=== PATIENT | female | born 1970 | race Caucasian/White ===

== ENCOUNTER → 2020-03-23 13:06 | Outpatient (BNVA) | payer MEDICAID, SELFPAY | PROVIDERS: PCP Internal Medicine; Referring Provider Internal Medicine; Visit Provider Nurse Practitioner Family | DX: Z76.89 Persons encountering health services in other specified circumstances (principal) ==

== ENCOUNTER 2020-03-24 07:57 | Outpatient (REF) | payer MEDICAID, SELFPAY ==
[2020-03-24 13:46] LABS: CT PCR NOT DETECTED (Not Detect.); NG PCR NOT DETECTED (Not Detect.)
[2020-03-25 09:34] LABS: BV Int Neg Control Negative (Negative); BV Int Pos Control Positive (Positive)
[2020-03-28 20:12] LABS: HPV mRNA E6/E7 rflx Not Detected (Not Detected)
== END 2020-03-24 07:58 | disposition home or self-care (01) ==
LOC: HO.LAB 07:57
PROVIDERS: Visit Provider Obstetrics & Gynecology
DX: R10.31 Right lower quadrant pain (principal); Z11.3 Encounter for screening for infections with a predominantly sexual mode of transmission; Z12.4 Encounter for screening for malignant neoplasm of cervix; Z87.42 Personal history of other diseases of the female genital tract
CPT/HCPCS: 87480; 87491; 87510; 87591; 87624; 87625; 87660; 88142; 99202

== ENCOUNTER → 2020-05-04 08:47 | Outpatient (BNVA) | payer MEDICAID, SELFPAY | PROVIDERS: PCP Family Medicine Geriatric Medicine; Visit Provider Surgery | DX: N63.10 Unspecified lump in the right breast, unspecified quadrant (principal) | CPT/HCPCS: 99202 ==

== ENCOUNTER 2020-05-05 13:11 | Outpatient (REF) | payer MEDICAID, SELFPAY ==
--- NOTE | 2020-05-05 13:13 | MR_ITS ---
EXAMINATION: MR BRAIN WITHOUT AND WITH CONTRAST CLINICAL INFORMATION: Epilepsy. COMPARISON: Brain MRI December 07, 2019. TECHNIQUE: Multiplanar, multisequence imaging of the brain was performed before and after the intravenous administration of 8 mL of Gadavist. FINDINGS: There is no acute infarction, mass, hemorrhage, or extra-axial collection. No abnormal or unexpected intracranial enhancement is seen. The ventricles, sulci, and basilar cisterns are normal in size and configuration. Mild nonspecific foci of T2 hyperintensity are seen in the bilateral cerebral white matter without change compared with December 07, 2019. The hippocampi demonstrate normal and symmetric signal and morphology. No focal cortical dysplasia is seen. The flow voids of the major intracranial arteries appear intact. There is redemonstration of a T2 hyperintense lesion in the right aspect of the sella measuring up to 9 mm compatible with a pituitary microadenoma which is similar in size and morphology compared with December 07, 2019. MR/MR head/brain wo/w con IMPRESSION: No mass lesion, acute infarction, or abnormal intracranial enhancement. No discrete epileptogenic nidus identified. Stable appearance of the pituitary microadenoma seen in the right aspect of the sella.
== END 2020-05-05 13:12 | disposition home or self-care (01) ==
LOC: HO.MRI 13:11
PROVIDERS: PCP Internal Medicine; Visit Provider Psychiatry & Neurology Neurology
DX: G40.909 Epilepsy, unspecified, not intractable, without status epilepticus (principal)
CPT/HCPCS: 70553; A9585

== ENCOUNTER 2020-05-10 08:54 | Day surgery (SDC) | payer MEDICAID, SELFPAY ==
[2020-05-02 14:18] VITALS: BMI 32.1
--- NOTE | 2020-05-09 09:10 | P.CONAN_ITS ---
Documented by User: Marina Vines 05/09/20 09:10 HPI - Anesthesia Eval Consult details Narrative: 50yo F for Colonoscopy PMFSH Past Medical History Medical History Anxiety Hyperlipidemia Seizure disorder Family History Family History Father Family history of high blood pressure Mother Family history of high blood pressure Maternal Grandmother Breast cancer in female Alzheimer disease Surgical History Surgical History History of endometrial ablation Hx of section Hx of tonsillectomy Hx of tubal ligation Social History Social History Are you a primary student career development specialist to a significant other at home: No Do you presently have visiting nurse or other home services: No Alcohol intake: former Year quit: 2019 Smoking Status: Light tobacco smoker Cigarettes Per Day: 2 Smoked in Last 30 Days: No Smoking Quit Date: 12/2019 Use of substances other than those prescribed or required for medical reasons: No Advance Directives: No Advance Directives Information Provided: Yes Advance Directives on File: No Recently lost weight without trying: No Meds Allergies Allergy/AdvReac Type Severity Reaction Status Date / Time moxifloxacin [From Avelox] Allergy rash,hives Verified 05/10/20 09:46 Home Medications Medication Instructions Recorded Confirmed Type atorvastatin 20 mg tablet 20 mg PO QPM 03/23/20 05/04/20 History cholecalciferol (vitamin D3) 50 50 mcg PO DAILY 03/23/20 05/04/20 History mcg (2,000 unit) capsule hydroxyzine HCl 25 mg tablet 25 mg PO TID PRN 03/23/20 05/04/20 History ibuprofen 600 mg tablet 600 mg PO Q8H PRN 03/23/20 05/02/20 History levetiracetam 500 mg tablet 1,500 mg PO BID tab 03/23/20 05/04/20 History oxcarbazepine 300 mg tablet 300 mg PO BID 03/23/20 05/02/20 History cetirizine 10 mg tablet 10 mg PO DAILY 03/24/20 05/04/20 History mometasone 50 mcg/actuation nasal 2 spray INTRANASAL DAILY 03/24/20 05/04/20 History spray Exam Exam Date and Time: May 09, 2020 0910 Height,Weight and Vital Signs: Height 5 ft 1 in Weight 77.111 kg Assessment and Plan Assessment Anesthesia Assessment: Chart Reviewed Documented by User: Marcia Pollard 05/10/20 10:27 [facility] Past Medical History Medical History Anxiety Hyperlipidemia Seizure disorder Family History Family History Father Family history of high blood pressure Mother Family history of high blood pressure Maternal Grandmother Breast cancer in female Alzheimer disease Surgical History Surgical History History of endometrial ablation Hx of section Hx of tonsillectomy Hx of tubal ligation Social History Social History Are you a primary student career development specialist to a significant other at home: No Do you presently have visiting nurse or other home services: No Alcohol intake: former Year quit: 2019 Smoking Status: Light tobacco smoker Cigarettes Per Day: 2 Smoked in Last 30 Days: No Smoking Quit Date: 12/2019 Use of substances other than those prescribed or required for medical reasons: No Advance Directives: No Advance Directives Information Provided: Yes Advance Directives on File: No Recently lost weight without trying: No Meds Allergies Allergy/AdvReac Type Severity Reaction Status Date / Time moxifloxacin [From Avelox] Allergy rash,hives Verified 05/10/20 09:46 Home Medications Medication Instructions Recorded Confirmed Type atorvastatin 20 mg tablet 20 mg PO QPM 03/23/20 05/04/20 History cholecalciferol (vitamin D3) 50 50 mcg PO DAILY 03/23/20 05/04/20 History mcg (2,000 unit) capsule hydroxyzine HCl 25 mg tablet 25 mg PO TID PRN 03/23/20 05/04/20 History ibuprofen 600 mg tablet 600 mg PO Q8H PRN 03/23/20 05/02/20 History levetiracetam 500 mg tablet 1,500 mg PO BID tab 03/23/20 05/04/20 History oxcarbazepine 300 mg tablet 300 mg PO BID 03/23/20 05/02/20 History cetirizine 10 mg tablet 10 mg PO DAILY 03/24/20 05/04/20 History mometasone 50 mcg/actuation nasal 2 spray INTRANASAL DAILY 03/24/20 05/04/20 History spray Exam Airway Mallampati Class: II TM Dist: >3cm Neck ROM: Full Assessment and Plan Assessment Anesthesia Assessment: Anesthesia Plan Discussed and Chart Reviewed Final Anesthetic Review NPO: Yes ASA Class: II Final Preanesthetic Review: No Changes in Pt Med Stat, Meds/Allgs Chart Reviewed, Consent Obtained/Reviewed and Anes Risks/Benef Reviewed Patient Risk: Low Procedure Risk: Low Assessment/Block/Sedation in SS: Assess/Block/Sedation-SS Anesthetic Plan Anesthetic Plan: MAC: Disposition: Standard PACU
[2020-05-10 09:47] VITALS: BP 121/73; PULSE 87; RESP 16; TEMP 36.7; O2SAT 96
[2020-05-10] MEDS: Lactated Ringers 1,000 ML 100 ML IVCONT (09:55)
--- NOTE | 2020-05-10 10:01 | MHC.SHP ---
Pre-Procedural Eval Section A The patient is an INPATIENT: No Section B Chief Complaint: Screening Details of Present Illness: Colon cancer screening--right sided pain x 2 months Relevant Family History (Specify if Yes): No Relevant Social History: None Present Medications: see Short Stay Collaborative assessment Medical History: Significant History (Anxiety, Seizure disorder) History of Previous Operations: Relevant previous surgery/procedure and date(s) (C section) Allergies: Allergies Allergy/AdvReac Type Severity Reaction Status Date / Time moxifloxacin [From Avelox] Allergy rash,hives Verified 05/10/20 09:46 Review of Systems Sugical H&P ROS: Negative: Constitution, Cardiovascular and Respiratory and Yes, Specify: Neurological (hx seizure), Psychiatric (anxiety), Gastrointestinal and Musculoskeletal Exam Surgical H&P Exam: Normal: HEENT, Normal: Heart, Normal: Lungs, Normal: Extremities and Normal: Neurological and Significant Findings: Abdomen (soft, no masses, no palpable tenderness) Plan Diagnosis/Plan: Unchanged I have reviewed the history and physical and performed a pertinent physical examination on my patient. No changes have occurred unless specified.--yes.
--- NOTE | 2020-05-10 10:16 | PM.PROC ---
Brief Operative Note Date of procedure: 05/10/20 Pre-op diagnosis: Colon cancer screening right sided pains. Procedure: THIS IS DUPLICATE SEE COMPLETED NOTE ALREADY SIGNED.
[2020-05-10 10:48] VITALS: BP 92/61; PULSE 86; RESP 16; TEMP 36.7; O2SAT 97
--- NOTE | 2020-05-10 10:48 | PM.PROC ---
Brief Operative Note Date of procedure: 05/10/20 Pre-op diagnosis: colon cancer screening, right sided abd(??) pain Post-op diagnosis: other (Incomplete to proximal transverse colon--poor prep) Procedure: Colonoscopy to prox transverse colon. Anesthesia: KALE (Latrice) Surgeon: Kathy Herzog Estimated blood loss (mL): 0 Pathology: none sent Condition: stable Disposition: PACU
[2020-05-10 11:03] VITALS: BP 113/78; PULSE 88; RESP 16; TEMP 36.7; O2SAT 97
--- NOTE | 2020-05-10 11:48 | HO.POSTANES ---
Post Anesthesia Evaluation Post Anesthesia Evaluation Vital Signs: Vital Signs Temp Pulse Resp BP Pulse Ox 05/10/20 11:03 98.0 F 88 16 113/78 97 05/10/20 10:48 98.0 F 86 16 92/61 97 05/10/20 09:47 98.0 F 87 16 121/73 96 Anesthesia: Monitored Mental Status: Awake Pain Control: Satisfactory Nausea/Vomiting: None Hydration: Adequate Anesthesia-Related Issues: No Anes. Related Issues
--- NOTE | 2020-05-10 12:57 | OP_ITS ---
SURGEON: Kathy Herzog MD PREOPERATIVE DIAGNOSIS: Colon cancer screening (right lower quadrant pain, persistent, negative evaluation, negative CT from 03/09/2020). POSTOPERATIVE DIAGNOSIS: Incomplete exam to proximal transverse colon. PROCEDURE PERFORMED: Colonoscopy, incomplete to the proximal transverse colon. ESTIMATED BLOOD LOSS: No blood loss. COMPLICATIONS: No complications. ANESTHESIA: Monitored. ANESTHESIOLOGIST: Dr. Pollard ASSISTANTS: No clothing sales assistant. SPECIMENS: No specimens. PRIMARY CARE PHYSICIAN: Dr. Costello at [facility]. DEPUTY DIRECTOR OF NURSING: Dr. Herzog. CONDITION: Postop, stable. FINDINGS: Digital rectal exam revealed decreased sphincter tone. Video colonoscope was introduced without difficulty. It was navigated easily through rectosigmoid, sigmoid, on up through descending colon. There was generalized decreased visibility due to overall poor prep. Areas were flushed and suctioned. Due to the lack of visibility, the procedure was terminated just distal to the hepatic flexure. On withdrawing the scope, no lesions were seen. Anorectal verge was clear. PLAN: The patient will be re-evaluated for consideration of repeat exam with a 2-day prep within 12 to 24 months. FIT testing to be done in 3 months. GRAFT OR IMPLANTS: No grafts or implants. Kathy Herzog MD MEN/MODL / [id number] MTDD
--- NOTE | 2020-05-14 17:47 | OP_ITS ---
SURGEON: Kathy Herzog MD PROCEDURE PERFORMED: Incomplete colonoscopy to the proximal transverse colon. ESTIMATED BLOOD LOSS: No blood loss. COMPLICATIONS: No complications. ANESTHESIA: Monitored. ASSISTANTS: No certified registered dental assistant. SPECIMENS: No specimens removed. PREOPERATIVE DIAGNOSES: The patient presented for colon cancer screening. She also had been experiencing some right lower quadrant pain. CT done on 03/09/2020 was negative. POSTOPERATIVE DIAGNOSES: Incomplete exam to the proximal transverse colon. HEEL SLICKER: Dr. Herzog. CONDITION: Postop, stable. FINDINGS: Digital rectal exam revealed decreased sphincter tone. Video colonoscope was introduced without difficulty from the get-go. Prep was poor. There was increased fiber residual with intermittent clogging of the suction port. Overall visibility was poor. With steady slow progress, we were able to get past the mid transverse colon; however, we then encountered significant residual feculent material that the only recourse was to withdraw the scope. Slow withdrawal of the scope with some degree of flushing and suctioning. No lesions were seen. Anorectal verge was clear. PLAN AND CURRENT RECOMMENDATIONS: Repeat screening in this patient would be to consider FIT testing and then if FIT testing is negative in 1 year, repeat colon cancer screening attempts with a two-day prep. GRAFT OR IMPLANTS: No grafts or implants. Kathy Herzog MD MEN/MODL / [id number] MTDD
== END 2020-05-10 11:42 | disposition home or self-care (01) ==
PROVIDERS: Visit Provider Internal Medicine Gastroenterology
PROC: 0DJD8ZZ Inspection of Lower Intestinal Tract, Via Natural or Artificial Opening Endoscopic (ICD-10-PCS; CPT 45378; principal; 2020-05-10 10:20)
DX: Z12.11 Encounter for screening for malignant neoplasm of colon (principal); G40.909 Epilepsy, unspecified, not intractable, without status epilepticus; Z79.899 Other long term (current) drug therapy; F17.210 Nicotine dependence, cigarettes, uncomplicated; Z88.8 Allergy status to other drugs, medicaments and biological substances
CPT/HCPCS: 45378; J2405; J3010

== ENCOUNTER 2020-05-16 15:13 | Outpatient (REF) | payer MEDICAID, SELFPAY ==
--- NOTE | 2020-05-16 | US_ITS ---
EXAMINATION: US ABDOMEN COMPLETE CLINICAL INFORMATION: Right upper quadrant pain, patient states history of renal calculi. COMPARISON: KUB 05/16/2020 TECHNIQUE: Real-time imaging of the abdominal viscera. Technically difficult study secondary to bowel gas, body habitus. FINDINGS: PANCREAS: Partially visualized body of the pancreas is normal. The rest of the pancreas is obscured by overlying gas. ABDOMINAL AORTA: The proximal, mid, and distal segments are normal in caliber. INFERIOR VENA CAVA: Visualized portions are normal. LIVER: The liver is diffusely coarse and echogenic. The size and the contour are normal. There are areas of focal fatty sparing adjacent to the gallbladder. There is no intrahepatic biliary duct dilatation seen. No focal lesions are seen. GALLBLADDER: There are small echogenic non-shadowing non-mobile lesions/common tail artifacts within the gallbladder wall likely adenomyomatosis. No echogenic stones or wall thickening seen. COMMON BILE DUCT: Normal in caliber measuring 0.4 cm in diameter. RIGHT KIDNEY: Normal. No hydronephrosis. No renal calculi or focal parenchymal lesions. The kidney measures 11.0 cm in maximum dimension. LEFT KIDNEY: There are small echogenic foci in the midpole. No hydronephrosis. No renal calculi or focal parenchymal lesions. The kidney measures 11.4 cm in maximum dimension. SPLEEN: Normal. The spleen measures 8.5 cm in maximum dimension. FREE FLUID: None. US/US abdomen complete IMPRESSION: Likely gallbladder adenomyomatosis. No echogenic stones or hydronephrosis seen. Diffuse coarse and heterogeneous echogenic liver with areas of focal fatty sparing adjacent the gallbladder. Nonspecific echogenic foci in midpole.
--- NOTE | 2020-05-16 15:27 | XR_ITS ---
EXAMINATION: XR ABDOMEN KUB CLINICAL INDICATION: Right upper quadrant pain COMPARISON: None TECHNIQUE: AP view of the abdomen. FINDINGS: The bowel gas pattern is normal. No dilated loops of bowel or evidence of free air is seen. No calcifications are seen. Bony structures are unremarkable. XR/XR KUB IMPRESSION: Unremarkable examination.
[2020-05-16 18:00] LABS: Hematocrit 42.4 % (37-47); Hemoglobin 13.8 g/dl (12.0-16.0); Mean Corpuscular HGB Conc 32.5 g/dl (31.0-35.0); Mean Corpuscular Hemoglobin 29.7 pg (27.0-33.0); Mean Corpuscular Volume 91.4 fL (80-98); Mean Platelet Volume 8.9 fL (9.4-12.3); Platelet Count 396 X10*3/uL (160-400); Red Blood Count 4.64 X10*6/uL (4.20-5.50); Red Cell Distribution Width 11.5 % (11.0-16.0); White Blood Count 10.4 X10*3/uL (4.8-10.8)
[2020-05-16 18:19] LABS: Alanine Aminotransferase 26 U/L (0-31); Albumin Level 4.5 g/dL (3.5-5.0); Alkaline Phosphatase 67 U/L (39-117); Alkaline Phosphatase 69 U/L (39-117); Amylase 58 U/L (28-100); Anion Gap 13 (12-20); Aspartate Amino Transferase 19 U/L (5-31); Bilirubin Direct < 0.2 mg/dL (0.0-0.5); Bilirubin Total 0.3 mg/dL (0.0-1.0); Blood Urea Nitrogen 9 mg/dL (9-16); Calcium 8.9 mg/dL (8.4-10.2); Carbon Dioxide 27 mmol/L (22-29); Chloride 103 mmol/L (96-108); Estimated Glomerular Filt Rate > 60; Glucose Random 91 mg/dL (60-115); Lipase 23 U/L (8-78); Potassium 4.3 mmol/l (3.3-5.1); Sodium 139 mmol/L (135-145); Total Protein 7.2 g/dL (6.5-8.0)
[2020-05-16 18:20] LABS: Glucose Urine UA NEG (NEG); Leukocyte Esterase Urine NEG (NEG); Nitrite Urine NEG (NEG); Urine Blood TRACE (NEG); Urine Ketones 15 MG/DL (NEG); Urine Protein NEG (NEG-TRACE)
[2020-05-16 18:22] LABS: Appearance Urine CLEAR; Color Urine YELLOW
[2020-05-16 18:33] LABS: Bacteria Urine 2+ /LPF; Squamous Epithelial Cell Urine 3+ /LPF
== END 2020-05-16 15:14 | disposition home or self-care (01) ==
LOC: HO.US 15:13
PROVIDERS: Nurse Practitioner Family; Absent Provider Family Medicine; PCP Internal Medicine; Referring Provider Emergency Medicine; Visit Provider Internal Medicine
DX: R10.11 Right upper quadrant pain (principal); R10.9 Unspecified abdominal pain; Z12.11 Encounter for screening for malignant neoplasm of colon
CPT/HCPCS: 36415; 74018; 76700; 80053; 80076; 81001; 82150; 82248; 83690; 85027

== ENCOUNTER 2020-05-18 13:52 | Emergency (ER) | payer MEDICAID, SELFPAY ==
[2020-05-18 14:12] VITALS: BP 107/73; PULSE 100; RESP 16; TEMP 36.9; O2SAT 97; BMI 70.8
[2020-05-18 17:36] VITALS: BP 125/77; PULSE 95; RESP 16; TEMP 36.7; O2SAT 99
[2020-05-18 17:50] LABS: MANUAL DIFF FLAG NO
[2020-05-18 17:52] LABS: Basophils Percent Auto 0.2 % (0-2); Eosinophils Absolute Auto 0.1 X10*3/uL (0.0-0.4); Eosinophils Percent Auto 1.1 % (0-4); Hematocrit 41.3 % (37-47); Hemoglobin 13.7 g/dl (12.0-16.0); Imm Gran Abs Auto 0.03 X10*3/uL (0.00-0.03); Imm Gran Pct Auto 0.4 % (0.0-0.4); Lymphocytes Absolute Auto 2.6 X10*3/uL (1.2-4.9); Lymphocytes Percent Auto 31.2 % (20-40); Mean Corpuscular HGB Conc 33.2 g/dl (31.0-35.0); Mean Corpuscular Hemoglobin 30.3 pg (27.0-33.0); Mean Corpuscular Volume 91.4 fL (80-98); Mean Platelet Volume 8.9 fL (9.4-12.3); Monocytes Absolute Auto 0.8 X10*3/uL (0.1-1.2); Monocytes Percent Auto 9.3 % (2-11); Neutrophils Absolute Auto 4.9 X10*3/uL (2.0-8.3); Neutrophils Percent Auto 57.8 % (45-73); Platelet Count 364 X10*3/uL (160-400); Red Blood Count 4.52 X10*6/uL (4.20-5.50); Red Cell Distribution Width 11.5 % (11.0-16.0); White Blood Count 8.4 X10*3/uL (4.8-10.8)
--- NOTE | 2020-05-18 17:52 | ED_ITS ---
HPI - Abdominal Pain General Chief Complaint: Abdominal Pain Stated Complaint: flank pain Time Seen by Provider: 05/18/20 17:52 Source: patient Mode of arrival: ambulatory Limitations: language barrier History of Present Illness HPI narrative: Patient with chronic right upper quadrant pain for more than 2 months seen entry driver operator had colonoscopy done last week which was negative head ultrasound done yesterday which also negative for gallstones comes here as she does not have the report of ultrasound and still having the pain. No vomiting no diarrhea had some nausea pain gets worse after eating heavy meals no fever no chills no urinary complaints no flank pain patient is supposed to see entry driver operator tomorrow MD elicited complaint: abdominal pain Pertinent past history: none Onset (ago): month(s) (2) Pain Consistency: intermittent Location: RUQ Severity: moderate Quality: cramping Radiation: RUQ and epigastric Exacerbating factors: eating Relieving factors: nothing Associated symptoms: nausea Related Data Home Medications Medication Instructions Recorded Confirmed atorvastatin 20 mg tablet 20 mg PO QPM 03/23/20 05/04/20 cholecalciferol (vitamin D3) 50 50 mcg PO DAILY 03/23/20 05/04/20 mcg (2,000 unit) capsule hydroxyzine HCl 25 mg tablet 25 mg PO TID PRN 03/23/20 05/04/20 ibuprofen 600 mg tablet 600 mg PO Q8H PRN 03/23/20 05/02/20 levetiracetam 500 mg tablet 1,500 mg PO BID tab 03/23/20 05/04/20 oxcarbazepine 300 mg tablet 300 mg PO BID 03/23/20 05/02/20 cetirizine 10 mg tablet 10 mg PO DAILY 03/24/20 05/04/20 mometasone 50 mcg/actuation nasal 2 spray INTRANASAL DAILY 03/24/20 05/04/20 spray Previous Rx's Medication Instructions Recorded dicyclomine 20 mg PO QID PRN #20 tab 05/18/20 omeprazole 20 mg PO DAILY #30 cap 05/18/20 ondansetron 4 mg PO Q6-8H PRN #7 tab 05/18/20 Allergies Allergy/AdvReac Type Severity Reaction Status Date / Time moxifloxacin [From Avelox] Allergy rash,hives Verified 05/10/20 09:46 Quinolones Allergy Hives Verified 05/18/20 14:15 Review of Systems Review of Systems Constitutional : No Weight loss, No Fever, No Chills ENT/Mouth : No sore throat, No Rhinorrhea Eyes: No Eye Pain, No Swelling Cardiovascular : No Chest Pain, no palpitations Respiratory : No Cough, No Sputum, no shortness of breath Gastrointestinal : ++Nausea, No Vomiting, No Diarrhea, +abdominal Pain, no black stools Genitourinary : No Dysuria, No Urinary Frequency Musculoskeletal : No joint pain, No Myalgias, No Joint Swelling Skin : No Skin Lesions, No rash Neuro : No Weakness, No Numbness, No Dizziness, No Headache Psych : No Anxiety/Panic, No Depression Heme/Lymph: No Bruising, No Lymphadenopathy Endocrine : No Polyuria, No Polydipsia All other systems reviewed and are negative Physical Exam Vital Signs: Vital Signs: Last Vital Signs Temp 98.1 F 05/18/20 18:00 Pulse 88 05/18/20 18:00 Resp 18 05/18/20 18:00 BP 118/79 05/18/20 18:00 Pulse Ox 97 05/18/20 18:00 Body Mass Index 70.8 Appearance: Alert. Oriented X3. No acute distress. Eyes: Pupils equal, round and reactive to light. ENT: Pharynx normal. Neck: Normal inspection. Neck supple. CVS: Normal heart rate and rhythm. Pulses normal. Respiratory: No respiratory distress. Breath sounds normal. Abdomen: Soft mild right upper quadrant tenderness no rebound tenderness/guarding. Bowel sounds are present, no mass palpable, no CVA tenderness Skin: Skin warm and dry. Normal skin color. Normal skin turgor. Extremities: No lower extremity edema. Neuro: Oriented X 3. No motor deficit. No sensory deficit. MDM - Abdominal Pain MDM Narrative Medical decision making narrative: The nonspecific abdominal pain ultrasound was done 2 days ago with showed no gallstones. Labs were stable patient advised to follow-up with entry driver operator as scheduled tomorrow will give her Bentyl patient feeling better after given Bentyl in the ER possible she has IBS Medical Records Attestation: I reviewed the patient's medical records. Lab Data Attestation: I reviewed the patient's lab results. Result diagrams: 05/18/20 17:43 05/18/20 17:44 Labs: Lab Results 01/13/21 01/13/21 01/13/21 Range/Units 17:43 17:43 17:44 WBC 8.4 (4.8-10.8) X10*3/uL RBC 4.52 (4.20-5.50) X10*6/uL Hgb 13.7 (12.0-16.0) g/dl Hct 41.3 (37-47) % MCV 91.4 (80-98) fL MCH 30.3 (27.0-33.0) pg MCHC 33.2 (31.0-35.0) g/dl RDW 11.5 (11.0-16.0) % Plt Count 364 (160-400) X10*3/uL MPV 8.9 L (9.4-12.3) fL Immature Gran % (Auto) 0.4 (0.0-0.4) % Neut % (Auto) 57.8 (45-73) % Lymph % (Auto) 31.2 (20-40) % Sharkey % (Auto) 9.3 (2-11) % Eos % (Auto) 1.1 (0-4) % Baso % (Auto) 0.2 (0-2) % Lymph # (Auto) 2.6 (1.2-4.9) X10*3/uL Sharkey # (Auto) 0.8 (0.1-1.2) X10*3/uL Eos # (Auto) 0.1 (0.0-0.4) X10*3/uL Baso # (Auto) 0.0 (0.0-0.2) X10*3/uL Abs Immat Gran (auto) 0.03 (0.00-0.03) X10*3/uL Absolute Neuts (auto) 4.9 (2.0-8.3) X10*3/uL Absolute Nucleated RBC 0.000 (0.0-0.012) X10*3/uL Nucleated RBC % (auto) 0.0 (0.0-0.2) /100WBC Hold Blue Top SEE NOTE Sodium 139 (135-145) mmol/L Potassium 4.0 (3.3-5.1) mmol/l Chloride 103 (96-108) mmol/L Carbon Dioxide 25 (22-29) mmol/L Anion Gap 15 (12-20) BUN 10 (9-16) mg/dL Creatinine 0.76 (0.5-1.4) mg/dL Estim Creat Clear Calc 133.6 Estimated GFR > 60 Random Glucose 94 (60-115) mg/dL Calcium 9.0 (8.4-10.2) mg/dL Total Bilirubin 0.4 (0.0-1.0) mg/dL AST 23 (5-31) U/L ALT 32 H (0-31) U/L Alkaline Phosphatase 68 (39-117) U/L Total Protein 7.0 (6.5-8.0) g/dL Albumin 4.4 (3.5-5.0) g/dL Lipase 24 (8-78) U/L Urine Color Urine Appearance Urine pH (5.0-8.0) Ur Specific [place] (1.005-1.025) Urine Protein (NEG-TRACE) MG/DL Urine Glucose (UA) (NEG) MG/DL Urine Ketones (NEG) MG/DL Urine Blood (NEG) Urine Nitrite (NEG) Ur Leukocyte Esterase (NEG) 05/18/20 Range/Units 19:28 WBC (4.8-10.8) X10*3/uL RBC (4.20-5.50) X10*6/uL Hgb (12.0-16.0) g/dl Hct (37-47) % MCV (80-98) fL MCH (27.0-33.0) pg MCHC (31.0-35.0) g/dl RDW (11.0-16.0) % Plt Count (160-400) X10*3/uL MPV (9.4-12.3) fL Immature Gran % (Auto) (0.0-0.4) % Neut % (Auto) (45-73) % Lymph % (Auto) (20-40) % Sharkey % (Auto) (2-11) % Eos % (Auto) (0-4) % Baso % (Auto) (0-2) % Lymph # (Auto) (1.2-4.9) X10*3/uL Sharkey # (Auto) (0.1-1.2) X10*3/uL Eos # (Auto) (0.0-0.4) X10*3/uL Baso # (Auto) (0.0-0.2) X10*3/uL Abs Immat Gran (auto) (0.00-0.03) X10*3/uL Absolute Neuts (auto) (2.0-8.3) X10*3/uL Absolute Nucleated RBC (0.0-0.012) X10*3/uL Nucleated RBC % (auto) (0.0-0.2) /100WBC Hold Blue Top Sodium (135-145) mmol/L Potassium (3.3-5.1) mmol/l Chloride (96-108) mmol/L Carbon Dioxide (22-29) mmol/L Anion Gap (12-20) BUN (9-16) mg/dL Creatinine (0.5-1.4) mg/dL Estim Creat Clear Calc Estimated GFR Random Glucose (60-115) mg/dL Calcium (8.4-10.2) mg/dL Total Bilirubin (0.0-1.0) mg/dL AST (5-31) U/L ALT (0-31) U/L Alkaline Phosphatase (39-117) U/L Total Protein (6.5-8.0) g/dL Albumin (3.5-5.0) g/dL Lipase (8-78) U/L Urine Color YELLOW Urine Appearance CLEAR Urine pH 5.5 (5.0-8.0) Ur Specific [place] >= 1.030 H (1.005-1.025) Urine Protein NEG (NEG-TRACE) MG/DL Urine Glucose (UA) NEG (NEG) MG/DL Urine Ketones 15 (NEG) MG/DL Urine Blood NEG (NEG) Urine Nitrite NEG (NEG) Ur Leukocyte Esterase NEG (NEG) Discharge Plan Discharge Clinical Impression: Abdominal pain Qualifiers: Abdominal location: upper abdomen, unspecified Qualified Code(s): R10.10 - Upper abdominal pain, unspecified IBS (irritable bowel syndrome) Qualifiers: Irritable bowel syndrome type: unspecified Qualified Code(s): K58.9 - Irritable bowel syndrome without diarrhea Patient Disposition: Home, Self-Care Instructions: Irritable Bowel Syndrome (ED) Additional Instructions: Drink plenty of fluids avoid fried food follow-up with entry driver operator/PCP. Medicine as advised Prescriptions: New dicyclomine 20 mg tablet 20 mg PO QID PRN (Reason: abdominal pain) Qty: 20 RF: 0 ondansetron 4 mg tablet,disintegrating 4 mg PO Q6-8H PRN (Reason: nausea and vomiting) Qty: 7 RF: 0 omeprazole 20 mg capsule,delayed release(DR/EC) 20 mg PO DAILY Qty: 30 RF: 0 No Action mometasone [Nasonex] 50 mcg/actuation spray,non-aerosol 2 spray intranasal DAILY RF: 0 cetirizine [Zyrtec] 10 mg tablet 10 mg PO DAILY RF: 0 levetiracetam [Keppra] 500 mg tablet 1,500 mg PO BID RF: 0 oxcarbazepine [Trileptal] 300 mg tablet 300 mg PO BID RF: 0 atorvastatin 20 mg tablet 20 mg PO QPM RF: 0 hydroxyzine HCl 25 mg tablet 25 mg PO TID PRN (Reason: Itching) RF: 0 ibuprofen 600 mg tablet 600 mg PO Q8H PRN (Reason: Pain, Mild) RF: 0 cholecalciferol (vitamin D3) 50 mcg (2,000 unit) capsule 50 mcg PO DAILY RF: 0 Interventions: ED Discharge Assessment Last Done: 05/18/20 20:13 Discharge Date/Time: 05/18/20 20:20 Print Language: Libyan [facility] Past Medical History Medical History Anxiety Hyperlipidemia Seizure disorder Surgical History History of endometrial ablation Hx of section Hx of tonsillectomy Hx of tubal ligation Family History Family History Father Family history of high blood pressure Mother Family history of high blood pressure Maternal Grandmother Breast cancer in female Alzheimer disease Social History Social History Alcohol intake: never Smoking Status: Light tobacco smoker Cigarettes Per Day: 2 Smoked in Last 30 Days: No Use of substances other than those prescribed or required for medical reasons: No Advance Directives: No Advance Directives Information Provided: Yes
[2020-05-18 18:00] VITALS: BP 118/79; PULSE 88; RESP 18; TEMP 36.7; O2SAT 97
[2020-05-18 18:16] LABS: Alanine Aminotransferase 32 U/L (0-31); Albumin Level 4.4 g/dL (3.5-5.0); Alkaline Phosphatase 68 U/L (39-117); Anion Gap 15 (12-20); Aspartate Amino Transferase 23 U/L (5-31); Bilirubin Total 0.4 mg/dL (0.0-1.0); Blood Urea Nitrogen 10 mg/dL (9-16); Carbon Dioxide 25 mmol/L (22-29); Chloride 103 mmol/L (96-108); Creatinine Clr Calc Pharmacy 133.6; Estimated Glomerular Filt Rate > 60; Glucose Random 94 mg/dL (60-115); Lipase 24 U/L (8-78); Sodium 139 mmol/L (135-145)
[2020-05-18] MEDS: Magnesium Hydrox/Alum Hydrox 30 ML ORAL.SUSP PO (18:35)
[2020-05-18] MEDS: Famotidine 20 MG TABLET PO (18:35)
[2020-05-18] MEDS: Dicyclomine HCl 10 MG CAPSULE 20 MG PO (18:35)
--- NOTE | 2020-05-18 18:35 | PC.NURSE ---
patient medicated per order
--- NOTE | 2020-05-18 18:59 | PC.NURSE ---
patient is aware we need a urine prior to discharge
[2020-05-18 19:37] LABS: Glucose Urine UA NEG (NEG); Leukocyte Esterase Urine NEG (NEG); Nitrite Urine NEG (NEG); PH 5.5 (5.0-8.0); Specific Gravity - Urine >= 1.030 (1.005-1.025); Urine Blood NEG (NEG); Urine Ketones 15 MG/DL (NEG); Urine Protein NEG (NEG-TRACE)
[2020-05-18 19:38] LABS: Appearance Urine CLEAR; Color Urine YELLOW
--- NOTE | 2020-05-18 20:16 | PC.NURSE ---
awaiting for interpretor to discharge patient
== END 2020-05-18 20:20 | disposition home or self-care (01) ==
PROVIDERS: Emergency Provider Internal Medicine; PCP Internal Medicine
DX: R10.10 Upper abdominal pain, unspecified (principal); K58.9 Irritable bowel syndrome, unspecified
CPT/HCPCS: 36415; 80053; 81003; 83690; 85025; 99283; 99284

== ENCOUNTER → 2020-05-19 11:43 | Outpatient (BNVA) | payer MEDICAID, SELFPAY | PROVIDERS: PCP Internal Medicine; Referring Provider Internal Medicine; Visit Provider Internal Medicine | DX: D35.2 Benign neoplasm of pituitary gland (principal); E04.2 Nontoxic multinodular goiter; K59.00 Constipation, unspecified; R10.9 Unspecified abdominal pain; Z98.890 Other specified postprocedural states | CPT/HCPCS: 99212 ==

== ENCOUNTER 2020-05-26 08:04 | Outpatient (REF) | payer MEDICAID, SELFPAY ==
[2020-05-26 08:53] LABS: Anion Gap 13 (12-20); Blood Urea Nitrogen 10 mg/dL (9-16); Calcium 8.9 mg/dL (8.4-10.2); Carbon Dioxide 26 mmol/L (22-29); Chloride 104 mmol/L (96-108); Estimated Glomerular Filt Rate > 60; Glucose Random 105 mg/dL (60-115); Potassium 4.4 mmol/l (3.3-5.1); Sodium 139 mmol/L (135-145)
[2020-05-26 09:15] LABS: Thyroid Stimulating Hormone 0.76 uIU/mL (0.32-4.0)
--- NOTE | 2020-05-26 16:14 | US_ITS ---
EXAMINATION: US THYROID CLINICAL INFORMATION: Benign neoplasm of pituitary gland. COMPARISON: None TECHNIQUE: Linear transducer alvarez-scale and color Doppler examination with attention to the region of the thyroid. FINDINGS: SIZE: Measurements of the thyroid lobes and nodules are given in sagittal, anteroposterior and transverse dimensions respectively. Right Thyroid Lobe: 5.0 x 1.4 x 1.8 cm, volume 6.6 mL. Parenchyma: The gland echotexture is homogeneous. Thyroid vascularity is normal. Left Thyroid Lobe: 4.5 x 1.3 x 1.7 cm, volume 5.2 mL. Parenchyma: The gland echotexture is homogeneous. Thyroid vascularity is normal. Isthmus: 0.4 cm in maximum AP dimension. RIGHT THYROID LOBE: There is 1 nodule seen. 1. Location: Inferior. Size: 0.4 x 0.2 x 0.3 cm. Nodule characteristics: Hypoechoic, smoothly marginated with no intranodular flow. ISTHMUS: No nodules. LEFT THYROID LOBE: No nodules. NODES: Small bilateral lymph nodes. The largest short axis right lymph node measures 0.81 cm and a short axis left lymph node measures 0.67 cm. Both lymph nodes appear benign. US/US thyroid IMPRESSION: Borderline-sized thyroid gland. Subcentimeter left thyroid nodule.
[2020-05-27 12:12] LABS: Triiodothyronine T3 Total 95 ng/dL (76-181)
[2020-05-27 17:47] LABS: Sex Hormone Binding Globulin 18 nmol/L (17-124)
[2020-05-27 20:57] LABS: Adrenocorticotropic Hormone 16 pg/mL (6-50)
[2020-05-27 22:06] LABS: Follicle Stimulating Hormone 17.5 mIU/mL; Lutenizing Hormone 8.8 mIU/mL; Prolactin Undiluted 18.6 ng/mL
[2020-05-31 11:07] LABS: IGF-1 (Somatomedin C) 106 ng/mL (50-317); IGF-1 Z Score (Female) -0.6 SD (-2.0 - +2.0)
[2020-06-01 20:37] LABS: Estradiol Ultra Sensitive 12 pg/mL
[2020-06-01 23:47] LABS: Estradiol, Ultrasensitive 12 pg/mL
== END 2020-05-26 08:05 | disposition home or self-care (01) ==
LOC: HO.US 08:04
PROVIDERS: PCP Internal Medicine; Visit Provider Internal Medicine
DX: D35.2 Benign neoplasm of pituitary gland (principal); E04.2 Nontoxic multinodular goiter
CPT/HCPCS: 36415; 76536; 80048; 82024; 82533; 82670; 83001; 83002; 84146; 84270; 84305; 84439; 84443; 84480

== ENCOUNTER → 2020-06-01 10:49 | Outpatient (BNVA) | payer MEDICAID, SELFPAY | PROVIDERS: PCP Internal Medicine; Visit Provider Surgery | DX: R10.31 Right lower quadrant pain (principal) | CPT/HCPCS: 99212 ==

== ENCOUNTER 2020-06-08 08:47 | Outpatient (REF) | payer MEDICAID, SELFPAY ==
--- NOTE | 2020-06-08 08:49 | CT_ITS ---
EXAMINATION: CT ABDOMEN AND PELVIS WITH CONTRAST CLINICAL INFORMATION: Right lower quadrant pain. COMPARISON: Ultrasound abdomen complete 05/16/2020. TECHNIQUE: Multidetector volumetric images were obtained from the superior aspect of the liver through the pubic symphysis following administration 85 mL of Omnipaque 350 intravenous contrast. Sagittal and coronal reformatted images were obtained on the technologist's workstation. Oral contrast: No This CT examination was performed using dose optimization techniques as appropriate, variously including the following: *Automated exposure control *Adjustment of mA and/or kV according to patient size (this includes techniques or standardized protocols for targeted exams where dose is matched to indication/reason for exam; i.e. extremities or head) *Use of iterative reconstruction technique DLP: 583 mGy-cm FINDINGS: LUNG BASES: The lung bases are clear. The heart size is normal. LIVER, GALLBLADDER, AND BILIARY TREE: The liver is normal in size, shape, and hypoattenuation. No focal hepatic lesion or biliary ductal dilatation is present. There is no radiopaque gallstones, wall thickening or pericholecystic inflammatory changes. There is a hyperdense area at the base of the gallbladder, question small stone versus adenomyomatosis on axial image 35/3. PANCREAS: Unremarkable. SPLEEN: Unremarkable. ADRENAL GLANDS: The left adrenal gland is slightly prominent. The right adrenal gland is unremarkable.. KIDNEYS AND URETERS: The kidneys are normal in size, shape, and attenuation. A few punctate hypodense areas seen along the upper and lower pole calyces of left kidney, question stone versus contrast excretion within the papilloma. Similar findings also seen in the right mid and lower pole right kidney. BLADDER: Unremarkable. GASTROINTESTINAL TRACT: There is scattered stool, oral contrast seen throughout the colon without distention. Appendix is normal caliber. The small bowel loops are normal caliber. ABDOMINAL WALL: A small umbilical hernia containing fat is noted. LYMPH NODES: Small shotty lymph nodes are seen in the retroperitoneum. VASCULAR: Unremarkable. PELVIC VISCERA: There is 2.6 cm left uterine lesion likely fibroid. Small nabothian cysts are seen in the cervix There is anechoic cyst left ovary measuring 2.9 x 2.5 cm. There is no free fluid in the cul-de-sac. No abnormal pelvic lymph nodes or mass seen. OSSEOUS STRUCTURES: Unremarkable. CT/CT abdomen pelvis w con IMPRESSION: Left uterine fibroid. Left ovarian cyst and nabothian cysts in cervix. Mild hepatic steatosis. No focal lesion seen. Mild constipation. Normal appendix.
[2020-06-08] MEDS: iohexoL 350 MG/ML 100 ML INFUS..BTL IV (11:53)
[2020-06-08] MEDS: Barium Sulfate Oral (Berry) 450 ML ORAL.SUSP 900 ML PO (11:54)
== END 2020-06-08 08:48 | disposition home or self-care (01) ==
LOC: HO.CT 08:47
PROVIDERS: PCP Internal Medicine; Visit Provider Surgery
DX: R10.31 Right lower quadrant pain (principal)
CPT/HCPCS: 74177; Q9967

== ENCOUNTER → 2020-06-17 09:19 | Outpatient (BNVA) | payer MEDICAID, SELFPAY | PROVIDERS: PCP Internal Medicine; Visit Provider Surgery | DX: R10.31 Right lower quadrant pain (principal) | CPT/HCPCS: 99212 ==

== ENCOUNTER → 2020-06-21 09:26 | Outpatient (BNVA) | payer MEDICAID, SELFPAY | PROVIDERS: PCP Internal Medicine; Visit Provider Obstetrics & Gynecology | DX: R10.31 Right lower quadrant pain (principal) | CPT/HCPCS: 99212 ==

== ENCOUNTER 2020-06-27 | Outpatient (REF) | payer MEDICAID, SELFPAY ==
[2020-06-28 18:33] LABS: Leukocytes Stool Qualitative NEGATIVE (NEGATIVE)
== END 2020-06-27 00:01 | disposition home or self-care (01) ==
LOC: HO.LNP
PROVIDERS: Visit Provider Internal Medicine
DX: R10.11 Right upper quadrant pain (principal)
CPT/HCPCS: 87045; 87046; 89055

== ENCOUNTER 2020-06-28 16:07 | Outpatient (REF) | payer MEDICAID, SELFPAY ==
[2020-06-30 08:10] LABS: FIT1 NEGATIVE (NEGATIVE)
[2020-06-30 08:11] LABS: FIT Int Ctl YES; FIT2 NEGATIVE (NEGATIVE)
== END 2020-06-28 16:08 | disposition home or self-care (01) ==
LOC: HO.LNP 16:07
PROVIDERS: PCP Internal Medicine; Visit Provider Nurse Practitioner Family
DX: R10.11 Right upper quadrant pain (principal)
CPT/HCPCS: 82274

== ENCOUNTER → 2020-07-15 12:51 | Outpatient (BNVA) | payer MEDICAID, SELFPAY | PROVIDERS: PCP Internal Medicine; Visit Provider Nurse Practitioner Family ==

== ENCOUNTER → 2020-07-27 09:17 | Outpatient (BNVA) | payer MEDICAID, SELFPAY | PROVIDERS: PCP Internal Medicine; Visit Provider Internal Medicine | DX: D35.2 Benign neoplasm of pituitary gland (principal); E04.2 Nontoxic multinodular goiter; E55.9 Vitamin D deficiency, unspecified | CPT/HCPCS: 99212 ==

== ENCOUNTER 2020-07-28 07:18 | Outpatient (REF) | payer MEDICAID, SELFPAY ==
[2020-07-28 09:22] LABS: Free T4 (Free Thyroxine) 0.83 ng/dL (0.71-1.85); Thyroid Stimulating Hormone 0.33 uIU/mL (0.32-4.0); Vitamin D 25-OH Total 15.9 ng/mL (>30)
[2020-07-29 07:22] LABS: Triiodothyronine T3 Total 82 ng/dL (76-181)
[2020-07-29 17:01] LABS: Adrenocorticotropic Hormone <5 pg/mL (6-50)
[2020-08-03 14:36] LABS: Dexamethasone 219 ng/dL
== END 2020-07-28 07:19 | disposition home or self-care (01) ==
LOC: HO.LAB 07:18
PROVIDERS: PCP Internal Medicine; Visit Provider Internal Medicine
DX: D35.2 Benign neoplasm of pituitary gland (principal); E55.9 Vitamin D deficiency, unspecified
CPT/HCPCS: 36415; 80299; 82024; 82306; 82533; 84439; 84443; 84480

== ENCOUNTER → 2020-08-05 13:11 | Outpatient (BNVA) | payer MEDICAID, SELFPAY | PROVIDERS: PCP Internal Medicine; Visit Provider Nurse Practitioner Family ==

== ENCOUNTER 2020-08-09 10:42 | Outpatient (REF) | payer MEDICAID, SELFPAY ==
--- NOTE | ~2020-08-09 | US_ITS ---
EXAM: Pelvic Ultrasound CLINICAL INDICATION: Left ovarian cyst follow-up COMPARISON: CT abdomen pelvis June 08, 2020 TECHNIQUE: The pelvis was evaluated using transabdominal and transvaginal imaging. Examination limited secondary to overlying bowel gas and body habitus. FINDINGS: The uterus measures approximately 9.4 x 4.3 x 5.7 cm in longitudinal by AP by transverse dimension. The endometrial stripe is not clearly visualized. 2.5 cm hypoechoic focus within the left portion of the uterine fundus likely represents a fibroid. Numerous nabothian cysts are present within the cervix. The left ovary measures approximately 3.3 x 1.9 x 1.3 cm and is normal. The right ovary measures approximately 2.5 x 1.7 x 2.0 cm and is also normal. Both ovaries were only visualized transabdominally. There are no abnormal adnexal masses. There is no free fluid in the pelvis. US/US pelvic complete IMPRESSION: -Extremely limited examination secondary to patient body habitus and overlying bowel gas. -Suspected 2.5 cm uterine fibroid. -Nabothian cysts of the cervix. -Ovaries were only visualized transabdominally, however, no ovarian cysts appreciated.
--- NOTE | ~2020-08-09 | US_ITS ---
EXAM: Pelvic Ultrasound CLINICAL INDICATION: Left ovarian cyst follow-up COMPARISON: CT abdomen pelvis June 08, 2020 TECHNIQUE: The pelvis was evaluated using transabdominal and transvaginal imaging. Examination limited secondary to overlying bowel gas and body habitus. FINDINGS: The uterus measures approximately 9.4 x 4.3 x 5.7 cm in longitudinal by AP by transverse dimension. The endometrial stripe is not clearly visualized. 2.5 cm hypoechoic focus within the left portion of the uterine fundus likely represents a fibroid. Numerous nabothian cysts are present within the cervix. The left ovary measures approximately 3.3 x 1.9 x 1.3 cm and is normal. The right ovary measures approximately 2.5 x 1.7 x 2.0 cm and is also normal. Both ovaries were only visualized transabdominally. There are no abnormal adnexal masses. There is no free fluid in the pelvis. US/US transvaginal IMPRESSION: -Extremely limited examination secondary to patient body habitus and overlying bowel gas. -Suspected 2.5 cm uterine fibroid. -Nabothian cysts of the cervix. -Ovaries were only visualized transabdominally, however, no ovarian cysts appreciated.
== END 2020-08-09 10:43 | disposition home or self-care (01) ==
LOC: HO.US 10:42
PROVIDERS: Visit Provider Family Medicine
DX: N83.209 Unspecified ovarian cyst, unspecified side (principal)
CPT/HCPCS: 76830; 76856

== ENCOUNTER 2020-08-09 14:48 | Outpatient (REF) | payer MEDICAID, SELFPAY ==
--- NOTE | ~2020-08-09 | MR_ITS ---
EXAMINATION: MR BRAIN WITHOUT AND WITH CONTRAST CLINICAL INFORMATION: Follow up pituitary lesion. COMPARISON: MRI studies dated 05/05/2020 and 12/07/2019. TECHNIQUE: Multiplanar, multisequential imaging was obtained without and with intravenous administration of contrast. Intravenous contrast: Gadavist 4 mL. FINDINGS: When comparing to the prior brain MRI studies from 05/05/2020 and 12/07/2019, the low signal lesion in the right aspect of the pituitary gland has not significantly changed in morphology or size. A small complex fluid level is again visible dependently within the cystic lesion. The infundibulum is slightly deviated to the left of midline, as on prior imaging and there is chronic bony remodeling with depression of the sellar floor on the right side, otherwise unchanged. The cavernous sinuses opacify symmetrically. No diffusion abnormalities are identified to suggest an acute infarct. The ventricles are normal in size. No mass effect or midline shift is seen. Scattered mild nonspecific white matter signal changes are stable. No extra-axial fluid collections are noted. The brainstem and cerebellum are normal. There is no abnormal parenchymal or leptomeningeal enhancement. The craniovertebral junction and marrow signal are normal. The mastoid air cells are well aerated. There are small retention cysts in the maxillary sinuses. MR/MR head/brain wo/w con IMPRESSION: Stable small heterogeneous cystic lesion in the right aspect of the pituitary gland, consistent with a pituitary adenoma. No acute intracranial process.
== END 2020-08-09 14:49 | disposition home or self-care (01) ==
LOC: HO.MRI 14:48
PROVIDERS: Visit Provider Internal Medicine
DX: D35.2 Benign neoplasm of pituitary gland (principal)
CPT/HCPCS: 70553; A9585

== ENCOUNTER → 2020-08-12 12:01 | Outpatient (BNVA) | payer MEDICAID, SELFPAY | PROVIDERS: PCP Internal Medicine; Visit Provider Obstetrics & Gynecology | DX: Z13.89 Encounter for screening for other disorder (principal) | CPT/HCPCS: 99212 ==

== ENCOUNTER → 2020-09-01 09:23 | Outpatient (BNVA) | payer MEDICAID, SELFPAY | PROVIDERS: PCP Internal Medicine; Visit Provider Internal Medicine ==

== ENCOUNTER → 2020-09-05 13:43 | Outpatient (BNVA) | payer MEDICAID, SELFPAY | PROVIDERS: PCP Internal Medicine; Visit Provider Nurse Practitioner Family ==

== ENCOUNTER → 2020-12-06 13:46 | Outpatient (BNVA) | payer MEDICAID, SELFPAY | PROVIDERS: PCP Internal Medicine; Referring Provider Internal Medicine; Visit Provider Nurse Practitioner Family | DX: K59.04 Chronic idiopathic constipation (principal); K21.9 Gastro-esophageal reflux disease without esophagitis; R14.0 Abdominal distension (gaseous) | CPT/HCPCS: 99212 ==

== ENCOUNTER → 2020-12-12 11:29 | Outpatient (BNVA) | payer MEDICAID, SELFPAY | PROVIDERS: PCP Internal Medicine; Visit Provider Internal Medicine ==

== ENCOUNTER 2021-01-06 17:28 | Emergency (ER) | payer MEDICAID, SELFPAY ==
--- NOTE | ~2021-01-06 | CT_ITS ---
EXAMINATION: CT ABDOMEN AND PELVIS WITH CONTRAST CLINICAL INFORMATION: Lower abdominal pain and diarrhea COMPARISON: 06/08/2020 TECHNIQUE: Multidetector volumetric images were obtained from the superior aspect of the liver through the pubic symphysis following administration 85 mL of Omnipaque 350 intravenous contrast. Sagittal and coronal reformatted images were obtained on the technologist's workstation. Oral contrast: No This CT examination was performed using dose optimization techniques as appropriate, variously including the following: *Automated exposure control *Adjustment of mA and/or kV according to patient size (this includes techniques or standardized protocols for targeted exams where dose is matched to indication/reason for exam; i.e. extremities or head) *Use of iterative reconstruction technique DLP: 665 mGy-cm FINDINGS: LUNG BASES: The visualized lung bases are unremarkable. LIVER, GALLBLADDER, AND BILIARY TREE: Changes of diffuse hepatic steatosis. No discrete lesion. Hepatic and portal vessels patent. No biliary dilatation. The gallbladder is unremarkable with no evidence of radiopaque gallstones, gallbladder wall thickening, or obvious pericholecystic inflammatory changes. PANCREAS: Unremarkable. SPLEEN: Unremarkable. ADRENAL GLANDS: Unremarkable. KIDNEYS AND URETERS: The kidneys are normal in size, shape, and attenuation. No hydronephrosis, hydroureter, or calculi seen. No perinephric stranding. BLADDER: Unremarkable. GASTROINTESTINAL TRACT: The small and large bowel are unremarkable. The appendix is unremarkable. ABDOMINAL WALL: No significant hernia is appreciated. LYMPH NODES: Normal. VASCULAR: Unremarkable. PELVIC VISCERA: Partial imaging of a cystic lesion left labia measuring approximately 15 mm most consistent with a Bartholin's gland cyst. Correlate with physical exam. Uterus is heterogeneous with a lesion dominant within the left myometrium measuring up to approximately 2 cm. Recommend elective ultrasound for further assessment to exclude an endometrial abnormality. OSSEOUS STRUCTURES: Unremarkable. CT/CT abdomen pelvis w con IMPRESSION: No bowel pathology or evidence for any enterocolitis. Suspect Bartholin's gland cyst on the left. Correlate with physical exam. Heterogeneous uterus which warrants elective ultrasound.
--- NOTE | 2021-01-06 17:34 | ED.ABDPAIN ---
HPI - Abdominal Pain General Chief Complaint: Abdominal Pain Stated Complaint: abd pain after eating pizza Time Seen by Provider: 01/06/21 17:34 Source: patient, EMS and conference interpreter Mode of arrival: EMS Limitations: no limitations History of Present Illness MD elicited complaint: abdominal pain Pertinent past history: constipation Onset (ago): hour(s) Pain Consistency: constant Location: RLQ and suprapubic Severity: severe Quality: stabbing Radiation: none Migration to: no migration Exacerbating factors: movement Relieving factors: nothing Context: history of similar episodes Associated symptoms: nausea and constipation Related Data Home Medications Medication Instructions Recorded Confirmed atorvastatin 20 mg tablet 20 mg PO QPM 03/23/20 12/12/20 cholecalciferol (vitamin D3) 50 50 mcg PO DAILY 03/23/20 12/12/20 mcg (2,000 unit) capsule hydroxyzine HCl 25 mg tablet 25 mg PO TID PRN 03/23/20 12/12/20 ibuprofen 600 mg tablet 600 mg PO Q8H PRN 03/23/20 12/12/20 levetiracetam 500 mg tablet 1,500 mg PO BID tab 03/23/20 12/12/20 (Keppra) oxcarbazepine 300 mg tablet 300 mg PO BID 03/23/20 12/12/20 (Trileptal) cetirizine 10 mg tablet (Zyrtec) 10 mg PO DAILY 03/24/20 12/12/20 mometasone 50 mcg/actuation nasal 2 spray INTRANASAL DAILY 03/24/20 12/12/20 spray (Nasonex) Previous Rx's Medication Instructions Recorded methylcellulose (laxative) 500 mg 500 mg PO DAILY #30 tab 08/05/20 tablet (Citrucel) linaclotide 290 mcg capsule 290 mcg PO DAILY #30 cap 12/06/20 (Linzess) omeprazole 20 mg capsule,delayed 20 mg PO DAILY #30 cap 12/06/20 release simethicone 125 mg capsule 125 mg PO BID-QID PRN #120 cap 12/06/20 Allergies Allergy/AdvReac Type Severity Reaction Status Date / Time moxifloxacin [From Avelox] Allergy Unknown rash,hives Verified 12/12/20 13:05 Quinolones Allergy Unknown Hives Verified 12/12/20 13:05 Review of Systems Review of Systems Constitutional : No Weight loss, No Fever, No Chills ENT/Mouth : No sore throat, No Rhinorrhea Eyes: No Swelling, No Redness Cardiovascular : No Chest Pain, No SOB, NoEdema Respiratory : No Cough, No Sputum, No Wheezing Gastrointestinal : Positive Nausea, no Vomiting, no Diarrhea, positive abdominal Pain, No Hematochezia, No Melena, pos constipation Genitourinary : No Dysuria, No Urinary Frequency, No Hematuria, No Urgency Musculoskeletal : No joint pain, No Myalgias, No Joint Swelling Skin : No Skin Lesions, No rash Neuro : No Weakness, No Numbness, No Dizziness, No Headache Psych : No Anxiety/Panic, No Depression Heme/Lymph: No Bruising, No Lymphadenopathy Endocrine : No Polyuria, No Polydipsia All other systems reviewed and are negative. Physical Exam Vital Signs: Vital Signs: Last Vital Signs Temp 97.8 F 01/06/21 17:46 Pulse 87 01/06/21 17:46 Resp 18 01/06/21 17:46 BP 150/87 H 01/06/21 17:46 Pulse Ox 97 01/06/21 17:46 Body Mass Index 32.1 Appearance: Alert. Oriented X3. No acute distress. Anxious Eyes: Pupils equal, round and reactive to light. ENT: Pharynx normal. Neck: Normal inspection. Neck supple. CVS: Normal heart rate and rhythm. Pulses normal. Respiratory: No respiratory distress. Breath sounds normal. Abdomen: Soft and moderate lower abdominal pain no rebound or guarding Skin: Skin warm and dry. Normal skin color. Normal skin turgor. Extremities: No lower extremity edema. No calf ttp Neuro: Oriented X 3. No motor deficit. No sensory deficit. Course Course Course Narrative: signed out to Dr. Juarez pending CT scan MDM - Abdominal Pain MDM Narrative Medical decision making narrative: 50 yo female with hx of chronic constipation and abdominal pain comes in with severe abdominal pain stable VS - states she has had this before and it is not the first time. Will obtain labs, UA, IVF, IV morphine for pain, CT scan given her degree of pain to r/o colitis/mass/obstruction Lab Data Result diagrams: 01/06/21 18:04 01/06/21 18:04 Labs: Lab Results 01/06/21 01/06/21 01/06/21 Range/Units 18:04 18:04 18:04 WBC 13.0 H (4.8-10.8) X10*3/uL RBC 4.31 (4.20-5.50) X10*6/uL Hgb 13.0 (12.0-16.0) g/dl Hct 38.5 (37-47) % MCV 89.3 (80-98) fL MCH 30.2 (27.0-33.0) pg MCHC 33.8 (31.0-35.0) g/dl RDW 11.6 (11.0-16.0) % Plt Count 377 (160-400) X10*3/uL MPV 9.0 L (9.4-12.3) fL Immature Gran % (Auto) 0.7 H (0.0-0.4) % Neut % (Auto) 74.0 H (45-73) % Lymph % (Auto) 15.5 L (20-40) % Addison % (Auto) 8.6 (2-11) % Eos % (Auto) 1.0 (0-4) % Baso % (Auto) 0.2 (0-2) % Lymph # (Auto) 2.0 (1.2-4.9) X10*3/uL Addison # (Auto) 1.1 (0.1-1.2) X10*3/uL Eos # (Auto) 0.1 (0.0-0.4) X10*3/uL Baso # (Auto) 0.0 (0.0-0.2) X10*3/uL Abs Immat Gran (auto) 0.09 H (0.00-0.03) X10*3/uL Absolute Neuts (auto) 9.6 H (2.0-8.3) X10*3/uL Absolute Nucleated RBC 0.000 (0.0-0.012) X10*3/uL Nucleated RBC % (auto) 0.0 (0.0-0.2) /100WBC Sodium 136 (135-145) mmol/L Potassium 3.8 (3.3-5.1) mmol/L Chloride 106 (96-108) mmol/L Carbon Dioxide 22 (22-29) mmol/L Anion Gap 12 (12-20) BUN 18 H D (9-16) mg/dL Creatinine 0.66 (0.5-1.4) mg/dL Estim Creat Clear Calc 94.7 Estimated GFR > 60 Random Glucose 130 H (60-115) mg/dL Lactic Acid (0.5-2.0) mmol/L Calcium 8.8 (8.4-10.2) mg/dL Magnesium (1.6-2.6) mg/dL Total Bilirubin (0.0-1.0) mg/dL Direct Bilirubin (0.0-0.5) mg/dL AST (5-31) U/L ALT (0-31) U/L Alkaline Phosphatase (39-117) U/L Total Protein (6.5-8.0) g/dL Albumin (3.5-5.0) g/dL Lipase (8-78) U/L COVID-19 ([facility]) Negative (Negative) COVID-19 Clin Com See Note 01/06/21 01/06/21 Range/Units 18:04 18:04 WBC (4.8-10.8) X10*3/uL RBC (4.20-5.50) X10*6/uL Hgb (12.0-16.0) g/dl Hct (37-47) % MCV (80-98) fL MCH (27.0-33.0) pg MCHC (31.0-35.0) g/dl RDW (11.0-16.0) % Plt Count (160-400) X10*3/uL MPV (9.4-12.3) fL Immature Gran % (Auto) (0.0-0.4) % Neut % (Auto) (45-73) % Lymph % (Auto) (20-40) % Addison % (Auto) (2-11) % Eos % (Auto) (0-4) % Baso % (Auto) (0-2) % Lymph # (Auto) (1.2-4.9) X10*3/uL Addison # (Auto) (0.1-1.2) X10*3/uL Eos # (Auto) (0.0-0.4) X10*3/uL Baso # (Auto) (0.0-0.2) X10*3/uL Abs Immat Gran (auto) (0.00-0.03) X10*3/uL Absolute Neuts (auto) (2.0-8.3) X10*3/uL Absolute Nucleated RBC (0.0-0.012) X10*3/uL Nucleated RBC % (auto) (0.0-0.2) /100WBC Sodium (135-145) mmol/L Potassium (3.3-5.1) mmol/L Chloride (96-108) mmol/L Carbon Dioxide (22-29) mmol/L Anion Gap (12-20) BUN (9-16) mg/dL Creatinine (0.5-1.4) mg/dL Estim Creat Clear Calc Estimated GFR Random Glucose (60-115) mg/dL Lactic Acid 1.3 (0.5-2.0) mmol/L Calcium (8.4-10.2) mg/dL Magnesium 2.2 (1.6-2.6) mg/dL Total Bilirubin 0.2 (0.0-1.0) mg/dL Direct Bilirubin < 0.2 (0.0-0.5) mg/dL AST 20 (5-31) U/L ALT 26 (0-31) U/L Alkaline Phosphatase 62 (39-117) U/L Total Protein 6.2 L (6.5-8.0) g/dL Albumin 3.7 (3.5-5.0) g/dL Lipase 29 (8-78) U/L COVID-19 ([facility]) (Negative) COVID-19 Clin Com Discharge Plan Discharge Clinical Impression: Abdominal pain Instructions: Abdominal Pain (ED) Prescriptions: No Action mometasone [Nasonex] 50 mcg/actuation spray,non-aerosol 2 spray intranasal DAILY RF: 0 cetirizine [Zyrtec] 10 mg tablet 10 mg PO DAILY RF: 0 Citrucel 500 mg tablet 500 mg PO DAILY Qty: 30 RF: 2 levetiracetam [Keppra] 500 mg tablet 1,500 mg PO BID RF: 0 oxcarbazepine [Trileptal] 300 mg tablet 300 mg PO BID RF: 0 atorvastatin 20 mg tablet 20 mg PO QPM RF: 0 hydroxyzine HCl 25 mg tablet 25 mg PO TID PRN (Reason: Itching) RF: 0 ibuprofen 600 mg tablet 600 mg PO Q8H PRN (Reason: Pain, Mild) RF: 0 cholecalciferol (vitamin D3) 50 mcg (2,000 unit) capsule 50 mcg PO DAILY RF: 0 Linzess 290 mcg capsule 290 mcg PO DAILY Qty: 30 RF: 5 omeprazole 20 mg capsule,delayed release(DR/EC) 20 mg PO DAILY Qty: 30 RF: 3 simethicone 125 mg capsule 125 mg PO BID-QID PRN (Reason: abdominal distention) Qty: 120 RF: 3 PMFSH Past Medical History Attestation statement: The following information was validated with the patient. Medical History Anxiety Chronic idiopathic constipation Hyperlipidemia Multinodular thyroid Ovarian cyst Pituitary macroadenoma Seizure disorder Vitamin D deficiency Surgical History History of endometrial ablation Hx of section Hx of colonoscopy Hx of tonsillectomy Hx of tubal ligation Family History Family History Father Family history of high blood pressure Diabetes Mother Thyroid disease Alzheimer disease Maternal Grandmother Breast cancer in female Alzheimer disease Family/Other Family history of high blood pressure Diabetes Cancer Alzheimer disease Epilepsia Social History Social History Household Members: Children Are you a primary farm or ranch animal caretaker to a significant other at home: No Do you presently have visiting nurse or other home services: No Alcohol intake: former Year quit: 2019 Patient Tobacco Use Status: Never used Tobacco Advance Directives: No Advance Directives Information Provided: Yes Current occupational status: unemployed
[2021-01-06 17:46] VITALS: BP 150/87; BP 155/81; PULSE 87; PULSE 93; RESP 18; TEMP 36.6; O2SAT 97; BMI 32.1
[2021-01-06] MEDS: 0.9 % Sodium Chloride 1,000 ML 999 ML IVCONT (17:54)
[2021-01-06] MEDS: ondansetron HCL 4 MG/2 ML VIAL IVPUSH (17:55)
[2021-01-06] MEDS: Morphine Sulfate 4 MG/ML CARTRIDGE IVPUSH (17:56)
[2021-01-06 18:11] LABS: MANUAL DIFF FLAG NO
[2021-01-06 18:23] LABS: Lactic Acid 1.3 mmol/L (0.5-2.0)
[2021-01-06 18:28] LABS: Anion Gap 12 (12-20); Blood Urea Nitrogen 18 mg/dL (9-16); Calcium 8.8 mg/dL (8.4-10.2); Carbon Dioxide 22 mmol/L (22-29); Chloride 106 mmol/L (96-108); Creatinine Clr Calc Pharmacy 94.7; Estimated Glomerular Filt Rate > 60; Glucose Random 130 mg/dL (60-115); Potassium 3.8 mmol/L (3.3-5.1); Sodium 136 mmol/L (135-145)
[2021-01-06 18:29] LABS: Alanine Aminotransferase 26 U/L (0-31); Albumin Level 3.7 g/dL (3.5-5.0); Alkaline Phosphatase 62 U/L (39-117); Aspartate Amino Transferase 20 U/L (5-31); Bilirubin Direct < 0.2 mg/dL (0.0-0.5); Bilirubin Total 0.2 mg/dL (0.0-1.0); Lipase 29 U/L (8-78); Magnesium 2.2 mg/dL (1.6-2.6); Total Protein 6.2 g/dL (6.5-8.0)
[2021-01-06 18:38] LABS: Basophils Percent Auto 0.2 % (0-2); Eosinophils Absolute Auto 0.1 X10*3/uL (0.0-0.4); Hematocrit 38.5 % (37-47); IDNOW Serial# 9DD0AD1C; Imm Gran Abs Auto 0.09 X10*3/uL (0.00-0.03); Imm Gran Pct Auto 0.7 % (0.0-0.4); Lymphocytes Percent Auto 15.5 % (20-40); Mean Corpuscular HGB Conc 33.8 g/dl (31.0-35.0); Mean Corpuscular Hemoglobin 30.2 pg (27.0-33.0); Mean Corpuscular Volume 89.3 fL (80-98); Monocytes Absolute Auto 1.1 X10*3/uL (0.1-1.2); Monocytes Percent Auto 8.6 % (2-11); Neutrophils Absolute Auto 9.6 X10*3/uL (2.0-8.3); Platelet Count 377 X10*3/uL (160-400); Red Blood Count 4.31 X10*6/uL (4.20-5.50); Red Cell Distribution Width 11.6 % (11.0-16.0)
[2021-01-06 18:39] LABS: COVID-19 Test Negative (Negative)
[2021-01-06] MEDS: iohexoL 350 MG/ML 100 ML INFUS..BTL IV (19:02)
[2021-01-06 19:45] VITALS: BP 121/64; PULSE 92; RESP 16; TEMP 36.8; O2SAT 100
--- NOTE | 2021-01-06 19:50 | PC.NURSE ---
PT IS RESTING IN BED WITH SIDE AT THE BEDSIDE. WAITING CT RESULTS. .
[2021-01-06 20:23] LABS: Appearance Urine CLEAR; Color Urine YELLOW; Glucose Urine UA NEG (NEG); Leukocyte Esterase Urine NEG (NEG); Nitrite Urine NEG (NEG); PH 5.5 (5.0-8.0); Urine Blood NEG (NEG); Urine Ketones NEG (NEG); Urine Protein NEG (NEG-TRACE)
== END 2021-01-06 21:05 | disposition home or self-care (01) ==
PROVIDERS: Emergency Medicine; Emergency Provider Internal Medicine
DX: R10.9 Unspecified abdominal pain (principal); K59.04 Chronic idiopathic constipation; Z20.822 Contact with and (suspected) exposure to COVID-19
CPT/HCPCS: 36415; 74177; 80048; 80076; 81003; 83605; 83690; 83735; 85025; 87635; 96361; 96374; 96375; 99284; J2270; J2405; Q9967

== ENCOUNTER → 2021-01-11 14:17 | Outpatient (BNVA) | payer MEDICAID, SELFPAY | PROVIDERS: PCP Internal Medicine; Visit Provider Nurse Practitioner Family | DX: K21.9 Gastro-esophageal reflux disease without esophagitis (principal); R14.0 Abdominal distension (gaseous); K59.04 Chronic idiopathic constipation; K58.1 Irritable bowel syndrome with constipation; E78.5 Hyperlipidemia, unspecified; E55.9 Vitamin D deficiency, unspecified; Z88.1 Allergy status to other antibiotic agents; Z88.5 Allergy status to narcotic agent | CPT/HCPCS: 99212 ==

== ENCOUNTER 2021-01-19 15:57 | Outpatient (REF) | payer MEDICAID, SELFPAY ==
--- NOTE | ~2021-01-19 | MM_ITS ---
EXAMINATION: MM SCREENING DIGITAL BREAST TOMOSYNTHESIS, BILATERAL CLINICAL INFORMATION: Screening. Asymptomatic. The lifetime risk of breast cancer based on the Tyrer-Cuzick Model is 13%. COMPARISON: Mammography: 12/24/2019 (new baseline); bilateral targeted breast ultrasound 12/24/2019 TECHNIQUE: Digital breast tomosynthesis is performed in both the craniocaudal and mediolateral oblique views along with computer-aided detection (CAD). Synthesized 2D images are generated from the tomosynthesis. FINDINGS: There are scattered areas of fibroglandular density (ACR BI-RADS breast composition Category b). There are no significant masses, abnormal calcifications, or other abnormalities. There is a stable circumscribed nodule 8:00 right breast corresponding to a node on targeted ultrasound. No developing density. The axilla and skin contours are unremarkable. MM/MM tomosynthesis screening BI IMPRESSION: No mammographic evidence of malignancy. ASSESSMENT: BI-RADS 2: Benign RECOMMENDATION: Routine annual mammography screening. This patient's information was entered into a reminder system with a target due date for their next mammogram.
== END 2021-01-19 15:58 | disposition home or self-care (01) ==
LOC: HO.MAMMO 15:57
PROVIDERS: PCP Internal Medicine; Visit Provider Internal Medicine
DX: Z12.31 Encounter for screening mammogram for malignant neoplasm of breast (principal)
CPT/HCPCS: 77063; 77067